=== PATIENT | male | born 1985 | race Two or more races ===

== ENCOUNTER 2016-09-12 09:28 | Emergency (ER) | payer OTHER ==
[~2016-09-12] VITALS: Ht 177.8 cm; Wt 74.8 kg
[2016-09-12] MEDS ORDERED: CHLORDIAZEPOXIDE HCL 25 MG CAPSULE ONE (10:01)
[2016-09-12] MEDS ORDERED: ONDANSETRON 4 MG TAB.RAPDIS ONE (10:01)
[2016-09-12 10:12] VITALS: BP 118/75
[2016-09-12] MEDS ORDERED: ONDANSETRON 4 MG TAB.RAPDIS SL ONE (10:30)
[2016-09-12] MEDS ORDERED: CHLORDIAZEPOXIDE HCL 25 MG CAPSULE PO ONE (10:30)
== END 2016-09-12 10:16 ==
LOC: ER 09:31
DX: F11.10 Opioid abuse, uncomplicated (principal)
CPT/HCPCS: A4606; Q0162; Z7610